=== PATIENT | male | born 1960 | race African-American/Black ===

== ENCOUNTER 2018-02-10 23:53 | Emergency (ER) | payer MEDICAID ==
[~2018-02-10] VITALS: Ht 180.3 cm; Wt 91.0 kg
[2018-02-11] MEDS ORDERED: MORPHINE SULFATE 4 MG/ML CPJ (NOT FOR IM USE) IV STA (00:11)
[2018-02-11] MEDS ORDERED: ONDANSETRON HCL 4MG/2ML VIAL IV STA (00:11)
[2018-02-11] MEDS ORDERED: FAMOTIDINE 20MG/2ML VIAL IV STA (00:11)
[2018-02-11] MEDS ORDERED: KETOROLAC 30MG/ML VIAL IV STA (00:11)
[2018-02-11] MEDS ORDERED: SODIUM CHLORIDE 0.9% 1,000 ML IV ONE (00:11)
[2018-02-11 00:35] LABS: BASOPHILS % 0.2 % (0.0-2.0); EOSINOPHILS % 5.4 % (0.0-5.0); LYMPHOCYTES % 45.5 % (20.0-50.0); MEAN CORPUSCULAR HEMOGLOBIN 29.5 pg (28.0-32.0); MEAN CORPUSCULAR VOLUME 86.3 fL (80.0-94.0); MEAN PLATELET VOLUME 6.7 fl (7.4-10.4); MONOCYTES % 8.3 % (2.0-8.0); NEUTROPHILS % 40.6 % (40.0-76.0); PLATELET 339 x1000/uL (130-400); RED CELL DISTRIBUTION WIDTH 13.5 % (11.6-14.6)
[2018-02-11 00:41] LABS: CHLORIDE 101 mEq/L (98-107)
[2018-02-11 00:47] LABS: D-DIMER 0.36 mg/L FEU (<0.50); PROTHROMBIN TIME 9.8 sec (9.1-11.1)
[2018-02-11 00:48] LABS: ETHANOL BLOOD < 10 mg/dL
[2018-02-11] MEDS ORDERED: LORAZEPAM 2MG/ML CPJ IV ONE (01:15)
[2018-02-11 04:29] VITALS: BP 104/58
== END 2018-02-11 04:33 | disposition home or self-care (01) ==
LOC: ER 02-11 00:26
DX: K80.20 Calculus of gallbladder without cholecystitis without obstruction (principal)
CPT/HCPCS: 36415; 71045; 74176; 80053; 83690; 83880; 84484; 85025; 85379; 85610; 93005; 96374; 96375; 99285; G0482; J1885; J2270; J2405; J3490; J7030; Z7610; J2060